=== PATIENT | female | born 1955 | race Caucasian/White ===

== ENCOUNTER → 2017-06-12 | Outpatient (CLI) | payer BC, MEDICARE ==
[~2017-06-12] MED LIST: ACIPHEX 20MG20 MG PO; ASPIRIN E.C. 8181 MG PO; BENAZEPRIL20 MG PO; BUSPAR; CARDI-OMEGA1000 MG PO; CIPRO; ESTRACE 1MG1 MG/TAB PO; ESTRACE0.5 MG PO; ESTRODOL; GERITOL COMPLET1 TAB PO; GLUCOSAMINE & C1 CA1 PO; INDERAL60 MG PO; LOTENSIN20 MG PO; MELATONIN1 M1 PO; MULTIPLE VITAMI1 CAP PO; NORCO 325 MG-7.1 TAB PO; PANTOPRAZOLE40 MG PO; PREDNISONE20 MG PO; PROTONIX 40MG T40 MG PO; SYNTHROID0.2 MG PO; SYNTHROID0.2 MG/TAB PO; TYLENOL 325MG325 MG PO; VITAMIN C BUFF500 MG PO; VITAMIN C500 MG PO; VITAMIN D1000 IU PO; XANAX .25M0.25 MG/TA PO; XANAX PO; XANAX1 MG PO; ZINC10 M1 PO; ZOLOFT 100MG100 MG PO; ZOLOFT 50MG50 MG PO
== END ==
LOC: MC.RAD 05-04 09:40
DX: Z12.31 Encounter for screening mammogram for malignant neoplasm of breast (principal)

== ENCOUNTER → 2018-07-25 | Outpatient (CLI) | payer BC | LOC: MC.RAD 10:00 | DX: Z12.31 Encounter for screening mammogram for malignant neoplasm of breast (principal) ==

== ENCOUNTER → 2019-07-30 | Outpatient (CLI) | payer BC | LOC: MC.RAD 14:58 | DX: Z12.31 Encounter for screening mammogram for malignant neoplasm of breast (principal) ==

== ENCOUNTER → 2020-08-13 | Outpatient (CLI) | payer MEDICARE, BC | LOC: MC.RAD 08-03 15:00 | DX: Z12.31 Encounter for screening mammogram for malignant neoplasm of breast (principal) ==

== ENCOUNTER → 2021-02-26 | Outpatient (CLI) | payer MEDICARE, BC | LOC: COL.VAS 08:49 | DX: M79.662 Pain in left lower leg (principal); R60.0 Localized edema ==

== ENCOUNTER → 2021-09-01 | Outpatient (CLI) | payer MEDICARE, BC | LOC: MC.RAD 13:15 | DX: Z12.31 Encounter for screening mammogram for malignant neoplasm of breast (principal) ==

== ENCOUNTER → 2023-12-04 | Outpatient (CLI) | payer MEDICARE, BC ==
[~2023-12-04] MED LIST changes: +ATACAND32 MG PO; +CEPHALEXIN500 M1 PO; +NEURONTIN100 MG/CAP PO; +NEURONTIN400 MG/CAP PO; +XIIDRA1 EACH OP
== END ==
LOC: MC.RAD 14:51
DX: Z12.31 Encounter for screening mammogram for malignant neoplasm of breast (principal); M79.641 Pain in right hand

== ENCOUNTER → 2023-12-12 | Outpatient (CLI) | payer MEDICARE, BC ==
[~2023-12-12] MED LIST changes: +Iohexol 300 - 10 ML VIAL IV ONE; +Triamcinolone 40 MG/ML 1 ML VIAL IJ ONE
== END ==
LOC: COL.RAD 07:38
DX: M79.641 Pain in right hand (principal)
CPT/HCPCS: J0665; J3301; Q9967